=== PATIENT | female | born 1975 | race American Indian/Alaskan Native ===

== ENCOUNTER 2017-03-28 17:17 | Emergency (ER) | payer MEDICAID ==
[2017-03-28 17:37] VITALS: BP 149/87
[2017-03-28] MEDS ORDERED: ASPIRIN PO ONE (17:37)
[2017-03-28 18:11] LABS: Basophils % (Auto) 0.3 % (0.0-1.8); Eosinophils # (Auto) 0.1 K/mm3 (0.0-0.4); Hematocrit 42.6 % (30.3-42.9); Hemoglobin 13.9 gm/dl (10.1-14.3); Lymphocytes # (Auto) 2.3 K/mm3 (1.2-5.4); Lymphocytes % (Auto) 26.8 % (13.4-35.0); Mean Corpuscular HGB Conc 33 % (30-34); Mean Corpuscular Volume 79 fl (79-97); Monocytes # (Auto) 0.7 K/mm3 (0.0-0.8); Platelet Count 237 K/mm3 (140-440); Red Cell Distribution Width 15.2 % (13.2-15.2)
[2017-03-28 18:14] LABS: Mean Corpuscular Hemoglobin 26 pg (28-32)
[2017-03-28 18:29] LABS: BUN/Creatinine Ratio 17; Blood Urea Nitrogen 10 mg/dL (7-17); Calcium 9.1 mg/dL (8.4-10.2); Hemolysis Index 13
--- NOTE | 2017-03-28 19:54 | Emergency Department Report ---
ED Chest Pain HPI - General Chief Complaint: Chest Pain Stated Complaint: CHEST DISCOMFORT/LEFT ARM TINGLE Time Seen by Provider: 03/28/17 19:36 Source: patient Mode of arrival: Ambulatory Limitations: No Limitations - History of Present Illness Initial Comments: Is a 41-year-old female past medical history hypertension and HIV and obesity who is presenting with chest discomfort and left arm tingling 2 hours ago. Patient states she was driving and started having the symptoms. Patient's states that she has was not exerting herself at this time she's never had this pain before and there was minimal shortness of breath no nausea vomiting cough this time. - Related Data Allergies Allergy/AdvReac Type Severity Reaction Status Date / Time No Known Allergies Allergy Unverified 03/28/17 17:37 Heart Score - HEART Score History: Slightly suspicious EKG: Normal Age: < 45 Risk factors: 1-2 risk factors Troponin: < normal limit HEART Score: 1 ED Review of Systems ROS: Stated complaint: CHEST DISCOMFORT/LEFT ARM TINGLE Other details as noted in HPI Comment: All other systems reviewed and negative ED Past Medical Hx - Past Medical History Previous Medical History?: Yes Hx Hypertension: Yes Hx HIV: Yes - Social History Smoking Status: Never Smoker Substance Use Type: None ED Physical Exam - General Limitations: No Limitations General appearance: alert, in no apparent distress - Head Head exam: Present: atraumatic, normocephalic - Eye Eye exam: Present: normal appearance - ENT ENT exam: Present: mucous membranes moist - Neck Neck exam: Present: normal inspection - Respiratory Respiratory exam: Present: normal lung sounds bilaterally. Absent: respiratory distress - Cardiovascular Cardiovascular Exam: Present: regular rate, normal rhythm. Absent: systolic murmur, diastolic murmur, rubs, gallop - GI/Abdominal GI/Abdominal exam: Present: soft, normal bowel sounds - Extremities Exam Extremities exam: Present: normal inspection - Back Exam Back exam: Present: normal inspection - Neurological Exam Neurological exam: Present: alert, oriented X3 - Psychiatric Psychiatric exam: Present: normal affect, normal mood - Skin Skin exam: Present: warm, dry, intact, normal color. Absent: rash ED Course Vital Signs 03/28/17 17:35 Temperature 97.6 F Pulse Rate 97 H Respiratory 16 Rate Blood Pressure 149/87 O2 Sat by Pulse 97 Oximetry ED Medical Decision Making - Lab Data Result diagrams: 03/28/17 17:57 03/28/17 17:57 - EKG Data -: EKG Interpreted by Me - EKG Data Interpretation: other (EKG shows a heart rate of 98 sinus rhythm normal axis normal intervals no ST segment elevations or depressions time of interpretation is 174) - Medical Decision Making Since states her chest pain is improved without any intervention patient's blood pressure on arrival was 149/87 he's afebrile she has had 2 negative troponins here in the emergency department heart scores 1 patient is a candidate to be discharged home with cardiology follow-up Critical care attestation.: If time is entered above; I have spent that time in minutes in the direct care of this critically ill patient, excluding procedure time. ED Disposition Clinical Impression: Chest pain Disposition: DC-01 TO HOME OR SELFCARE Is pt being admited?: No Does the pt Need Aspirin: No Condition: Stable Instructions: Chest Pain (ED) Referrals: ALBARO DIAZ MD [Staff Physician] - 3-5 Days
== END 2017-03-28 19:57 | disposition home or self-care (01) ==
LOC: ED 17:17
DX: R07.89 Other chest pain (principal); I10 Essential (primary) hypertension
CPT/HCPCS: 36415; 80048; 84484; 85025; 93005; 93010; 99284

== ENCOUNTER 2021-02-28 08:58 | Emergency (ER) | payer SELFPAY | END 2021-02-28 11:12 | disposition left against medical advice (07) | LOC: ED 08:58 | DX: R10.9 Unspecified abdominal pain (principal); Z53.21 Procedure and treatment not carried out due to patient leaving prior to being seen by health care provider ==